=== PATIENT | female | born 1960 | race Caucasian/White ===

== ENCOUNTER → 2017-08-13 | Outpatient (CLI) | payer OTHER ==
[~2017-08-13] MED LIST: ABL10 PO; AMIT150T PO; BUPR-79 PO; CALC-51 PO; DEXL60CA4 PO; IMT100 PO; IRON PO; LAMO200T35 PO; LEVO50TA PO; MULT-506 PO; OXYC-57 PO; PSEU30TA20 PO; TRET-55 TOP; WARF2TAB8 PO; ZNTT/150 PO
[2017-08-13 17:53] LABS: URINE APPEARANCE CLEAR (CLEAR); URINE BILIRUBIN NEG (NEG); URINE COLOR YELLOW; URINE EPITHELIAL CELL AUTO 20-30 /lpf (0-5); URINE NITRITE NEG (NEG); URINE SPECIFIC GRAVITY 1.007 (1.000-1.030); UROBILINOGEN NEG (NEG); ZZUR CULT IF INDIC CLEAN CATCH NO
[2017-08-13 17:57] LABS: MANUAL MICROSCOPIC REQUIRED? NO; REVIEW REQ? NO
== END | disposition home or self-care (01) ==
LOC: C.LABBFT 14:04
PROVIDERS: ATTEND Nurse Practitioner
DX: R30.0 Dysuria (principal)